=== PATIENT | female | born 1940 | race Caucasian/White ===

== ENCOUNTER 2019-02-23 20:42 | Observation (INO) ==
[2019-02-23] MEDS ORDERED: ALBUTEROL/IPRATROPIUM 3 ML NEB RESP TX STA (21:12)
[2019-02-23] MEDS ORDERED: cefTRIAXone 1,000 MG in SODIUM CHLORIDE 0.9% 100 ML IV STA (21:12)
[2019-02-23 21:22] LABS: Basophils % 0.5 % (0.0-0.8); Eosinophils # 0.1 10*3/uL (0.0-0.87); Eosinophils % 2.2 % (0.00-10.9); Hemoglobin 13.7 GM/DL (12.0-16.0); Immature Granulocytes % 0.5 %; Immature Granulocytes Absolute 0.03 #; Lymphocytes # 0.8 10*3/uL (1.4-4.0); Lymphocytes % 12.8 % (21.3-54.2); Mean Corpuscular HGB Conc 31.9 GM/DL (32-36); Mean Platelet Volume 9.6 FL (9.6-12.0); Platelet Count 188 T/CUMM (130-400); Red Cell Distribution Width 13.5 % (9.3-17.3)
[2019-02-23 21:36] LABS: Albumin 3.8 G/DL (3.4-5.0); Bilirubin,Total 0.4 MG/DL (0.2-1.0); Calcium 8.7 MG/DL (8.5-10.1); Total Protein 7.8 G/DL (6.4-8.3)
[2019-02-23 22:49] LABS: Allen Test Positive
[2019-02-23 22:50] LABS: ABG Base Excess 4.6 MMOL/L (-2.5-2.5); ABG HCO3 28.4 MMOL/L (20-26); ABG Oxygen Saturation 91.5 % (95-100); ABG PCO2 43.7 MM HG (35-48); ABG PH 7.436 (7.35-7.45); ABG PO2 61.4 MM HG (80-95); ABG TCO2 25.7 MMOL/L (23-27)
[2019-02-23] MEDS: OSELTAMIVIR 75 MG CAPSULE PO SCH (23:04)
[2019-02-23] MEDS ORDERED: ONDANSETRON 4 MG/2 ML VIAL IV PRN (23:33)
[2019-02-23] MEDS ORDERED: GLUCAGON 1 MG VIAL IM PRN (23:33)
[2019-02-23] MEDS ORDERED: ACETAMINOPHEN 325 MG TABLET PO PRN (23:33)
[2019-02-23] MEDS ORDERED: ALBUTEROL/IPRATROPIUM 3 ML NEB RESP TX PRN (23:33)
[2019-02-23] MEDS ORDERED: DEXTROSE 50% 25 GM/50 ML VIAL IV PRN (23:33)
[2019-02-24] MEDS ORDERED: INFLUENZA VIRUS VACCINE 0.5 ML SYRINGE IM ONE (00:03)
[2019-02-24] MEDS: INSULIN REGULAR 100 UNIT/ML SUBCUT SCH ×2 (08:46→12:06)
[2019-02-24] MEDS: OSELTAMIVIR 75 MG CAPSULE PO SCH ×2 (08:59→21:44)
[2019-02-24] MEDS: PANTOPRAZOLE 40 MG TABLET PO SCH (08:59)
[2019-02-24] MEDS ORDERED: HYDROcodone/CHLORPHENIRAMINE ER 5 ML UDCUP PO PRN (14:28)
[2019-02-24] MEDS: ALBUTEROL/IPRATROPIUM 3 ML NEB RESP TX SCH ×2 (15:15→23:45)
[2019-02-24] MEDS: methylPREDNISolone SOD SUC 40 MG/1 ML VIAL IV SCH (15:21)
[2019-02-25] MEDS: methylPREDNISolone SOD SUC 40 MG/1 ML VIAL IV SCH ×2 (03:07→13:37)
[2019-02-25] MEDS ORDERED: LEVOTHYROXINE 75 MCG TABLET PO SCH (06:30)
[2019-02-25] MEDS: ALBUTEROL/IPRATROPIUM 3 ML NEB RESP TX SCH (07:23)
[2019-02-25] MEDS ORDERED: MAGNESIUM CHLORIDE 64 MG TABLET PO SCH (09:00)
[2019-02-25] MEDS ORDERED: LISINOPRIL/HCTZ 10-12.5 MG TABLET PO SCH (09:00)
[2019-02-25] MEDS: OSELTAMIVIR 75 MG CAPSULE PO SCH (09:24)
[2019-02-25] MEDS: PANTOPRAZOLE 40 MG TABLET PO SCH (09:25)
[2019-02-25] MEDS ORDERED: ALBUTEROL/IPRATROPIUM 3 ML NEB RESP TX ONE (11:37)
[2019-02-25 12:59] VITALS: BP 116/62
== END 2019-02-25 14:45 | disposition home or self-care (01) ==
LOC: N.ED 20:42 → N.EDINP 20:42 → N.2W 22:54
PROVIDERS: ADMIT Family Medicine; ATTEND Family Medicine